=== PATIENT | female | born 1980 | race Caucasian/White ===

== ENCOUNTER → 2017-05-12 | Outpatient (CLI) | payer BC ==
--- NOTE | 2017-05-13 15:08 | RADRPT ---
PROCEDURE: I - 123 thyroid uptake and scan CLINICAL INDICATION: 36 -year-old patient with hyperthyroidism. TECHNIQUE: Following the oral administration of 0.19 mCi of I - 123, thyroid uptake and scan was o btained. COMPARISON: No prior thyroid scans. FINDINGS: 6 hours radioiodine uptake is 75 % (normal range is 5% - 20%). 24 hours radioiodine uptake is 64 % (normal range is 7% - 35%). The thyroid gland demonstrates a mildly enlarged thyroid gland (approximately 1.5 x normal size) wit h diffusely increased homogeneous distribution of radionuclide throughout the thyroid gland. IMPRESSION: The scintigraphic pattern of the abnormalities is most compatible with Graves disease. RPTAT: HH .Svetlana Carrizales MD, Date Time Electronically viewed and signed by .Svetlana Carrizales MD, on 05/13/2017 15:07 .L/
== END | disposition home or self-care (01) ==
LOC: NUC 09:28
PROVIDERS: ATTEND Internal Medicine
DX: E05.90 Thyrotoxicosis, unspecified without thyrotoxic crisis or storm (principal)
CPT/HCPCS: 78010